=== PATIENT | female | born 1955 | race Caucasian/White ===

== ENCOUNTER 2017-11-26 12:10 | Observation (INO) | payer BC ==
[2017-11-26] MEDS: ONDANSETRON 4 MG INJ IV (12:59)
[2017-11-26] MEDS: FENTAnyl 50 MCG/ML VIAL IV (13:06)
[2017-11-26 13:24] LABS: INR 0.91; PROTIME 12.3 Sec (11.9-14.9)
[2017-11-26] MEDS ORDERED: ONDANSETRON 4 MG INJ IV ×2 (14:00→16:00)
[2017-11-26] MEDS ORDERED: ACETAMINOPHEN 325 MG TAB PO (14:00)
[2017-11-26] MEDS: ACETAMINOPHEN 325 MG TAB PO (14:20)
[2017-11-26] MEDS: KETOROLAC 15 MG INJ IV ×2 (14:20→23:30)
[2017-11-26] MEDS: morphine 4 MG/ML VIAL IV (14:21)
[2017-11-26] MEDS ORDERED: morphine 2 MG INJ IV (16:00)
[2017-11-26] MEDS ORDERED: HYDROCODONE/APAP (5/325) TAB PO (16:00)
[2017-11-26] MEDS ORDERED: NACL 0.9% 3 ML SYG IV (16:00)
[2017-11-26] MEDS ORDERED: ZOLPIDEM 5 MG TAB PO (16:00)
[2017-11-26] MEDS ORDERED: IBUPROFEN 600 MG TAB PO (16:30)
[2017-11-26] MEDS: DOCUSATE SODIUM 100 MG CAP PO (20:22)
[2017-11-27] MEDS: ACETAMINOPHEN 325 MG TAB PO (06:24)
[2017-11-27 07:30] LABS: ADD MAN DIFF? NO
[2017-11-27 07:40] LABS: BASOPHIL # 0.1 10^3/ul (0.0-0.1); EOSINOPHILS # 0.2 10^3/ul (0.0-0.5); EOSINOPHILS % 3.2 % (0.0-7.0); HEMATOCRIT 39.8 % (37.0-47.0); HEMOGLOBIN 12.8 g/dl (12.0-16.0); LYMPHOCYTES # 1.5 10^3/ul (0.8-2.9); LYMPHOCYTES % 25.3 % (15.0-51.0); MEAN CORPUSCULAR HEMOGLOBIN 29.4 pg (29.0-33.0); MEAN CORPUSCULAR HGB CONC 32.2 g/dl (32.0-37.0); MEAN CORPUSCULAR VOLUME 91.3 fl (82.0-101.0); MEAN PLATELET VOLUME 10.3 fl (7.4-10.4); MONOCYTE # 0.6 10^3/ul (0.3-0.9); NEUTROPHIL # 3.5 10^3/ul (1.6-7.5); NEUTROPHILS % 60.2 % (39.0-77.0); PLATELET COUNT 278 10^3/UL (140-415); RED BLOOD COUNT 4.36 10^6/ul (4.20-5.40); RED CELL DISTRIBUTION WIDTH 12.7 % (11.5-14.5)
[2017-11-27 07:40] LABS: WHITE BLOOD COUNT 5.9 10^3/ul (4.8-10.8)
[2017-11-27 08:29] LABS: ANION GAP 12 (8-16); BLOOD UREA NITROGEN 15 mg/dl (7-20); CALCIUM 9.3 mg/dl (8.4-10.2); CARBON DIOXIDE 31 mmol/L (21-31); CHLORIDE 106 mmol/L (97-110); GLUCOSE 93 mg/dl (70-220); MAGNESIUM 2.2 mg/dl (1.7-2.5); PHOSPHORUS 4.9 mg/dl (2.5-4.9); POTASSIUM 4.9 mmol/L (3.5-5.1); SODIUM 144 mmol/L (135-144)
[2017-11-27 09:37] LABS: HEMOGLOBIN A1C 5.6 % (0-5.9)
[2017-11-27] MEDS: DOCUSATE SODIUM 100 MG CAP PO (15:32)
[2017-11-27] MEDS: KETOROLAC 15 MG INJ IV (21:37)
[2017-11-29] MEDS ORDERED: IBUPROFEN 600 MG TAB PO (16:30)
== END 2017-11-28 14:24 | disposition home or self-care (01) ==
LOC: E/R 12:10 → MS4 13:53
DX: J93.83 Other pneumothorax (principal); R06.02 Shortness of breath
CPT/HCPCS: 71045; 71046; 80048; 83036; 83735; 84100; 85025; 85610; 93005; 96374; 96375; 99285-25; G0378